=== PATIENT | male | born 1950 | race Caucasian/White ===

== ENCOUNTER 2019-08-11 11:14 | Observation (INO) | payer MEDICARE, SELFPAY ==
[2019-08-11 11:15] VITALS: BP 135/65; PULSE 97; RESP 20; TEMP 36.6; O2SAT 99; BMI 19.5
[2019-08-11 11:28] VITALS: BMI 15.3
--- NOTE | 2019-08-11 11:31 | RAD_ITS ---
STUDY: X-RAY CHEST REASON FOR EXAM: Male, 69 years old. Increasing SOB -- emphysema, h/o asbestos TECHNIQUE: AP and lateral views of the chest. COMPARISON: Comparison is made with prior examination dated September 12, 2013. FINDINGS: EKG electrodes are seen. Since prior study, there has been moderate degree of progression of diffuse interstitial changes in both lungs worse in the lower lobes. This is suggestive of progressive interstitial fibrosis. I suspect a 1.2 cm nodule in the lateral aspect of the right middle lobe. There is blunting of both costophrenic angles. Right pleural plaque calcification. Sternal cerclage wires are present from a prior sternotomy. The patient is status post mitral valve replacement. Normal mediastinum and ward. Normal visualized pulmonary arteries. There is atherosclerotic calcification of the aortic arch with tortuosity. There are diffuse degenerative changes of the visualized thoracic spine. Normal visualized ribs, clavicles, and shoulders. There is no demonstrated abnormality of the visualized soft tissue structures of the upper abdomen. RAD/Chest PA and Lateral IMPRESSION: Progressive increased interstitial markings in both lungs with blunting of both gastric angles as well as calcified right pleural plaques. I suspect a 1.2 cm nodule in the lateral aspect of the right middle lobe. Electronically Signed: Torsten Chacko, at 12:57 EST , Service support ,
--- NOTE | 2019-08-11 11:31 | EKG12_ITS ---
Test Reason : SOB Blood Pressure : / mmHG Vent. Rate : 089 BPM Atrial Rate : 089 BPM P-R Int : 172 ms QRS Dur : 080 ms QT Int : 354 ms P-R-T Axes : 016 043 067 degrees QTc Int : 430 ms Normal sinus rhythm with sinus arrhythmia Moderate voltage criteria for LVH, may be normal variant Borderline ECG Confirmed by MARÍA KERR, JESUS ([id number]), book editor RYAN SHANE ([id number]) on 08/14/2019 3:36:10 PM Referred By: RICCARDO Confirmed By:JESUS DANIEL MD
--- NOTE | 2019-08-11 11:33 | ED.VIS.GEN ---
History of Present Illness Chief Complaint: Shortness of Breath Informant: Patient, Family Narrative: She is here with chronic worsening of shortness of breath, weight loss and increasing weakness. This is been ongoing for a few months but got much worse in the past few weeks his daughter had try to get him to the hospital but he refused to go. Patient excepted today. He has no fever or chills he has a chronic cough, he denies any abdominal pain or back pain. Denies alcohol, he does smoke quite a bit, he denies any chest pain he tells me his shortness of breath is mostly exertional. He had lost 40 to 50 pounds recently. Past Medical History - Allergies and Home Meds Allergies/Adverse Reactions: Allergies No Known Allergies Allergy (Verified 08/11/19 11:17) Primary Care Physician: David Freedman Chi, MD [COURTESY STAFF PHYSICIAN] - Past Medical History: - - Hypertension hypercholesterolemia history of cardiac disease Smoking Status: Current every day smoker Review of Systems General: Reports: Malaise. Denies: Fever Eyes: Denies: Visual changes - bilaterally Cardiovascular: Denies: Chest pain, Palpitations Respiratory: Reports: Cough, Dyspnea on exertion. Denies: Sputum Gastrointestinal: Denies: Abdominal pain, Nausea Genitourinary: Denies: Dysuria Musculoskeletal: Denies: Myalgias Skin: Denies: Rash Neurological: Reports: Headache, - - No focal weakness, he does have generalized weakness Endocrine: Denies: Polyuria Hematologic: Denies: Easy bruising Physical Exam Vital Signs/Narrative: Vital Signs Temp Pulse Resp BP Pulse Ox 08/11/19 11:15 98 F 97 20 H 135/65 H 99 General: - - Patient appears cachectic, he has quite a bit of muscle wasting Head: Normocephalic Eyes: Perrl. Negative for: Pale conjunctiva ENT: Dry mucous membranes Neck: Supple Cardiovascular: Regular rate, Regular rhythm, No murmurs, - - Midline scar, nontender Respiratory: - - Coarse bilateral breath sounds, diminished breath sounds but no wheezing slightly prolonged expirations. Abdomen: Soft, Nontender, Nondistended Back: Nontender, Normal Inspection. Negative for: CVA tenderness Extremities: Nontender, No edema Skin: Negative for: Cyanosis, Jaundice, Pallor, Rash Neurological: Alert, Oriented x3, Cranial nerves II-XII grossly intact Psychological: Depressed Diagnostic/Tx/Re-eval - Medical Decision Making He has a pulmonary nodule, he is quite cachectic, it is clear after discussing with the patient as well as the daughter that he cannot function outpatient I will admit him. He will need placement he will need further monitoring. Will need nutrition. ED Disposition - Plan for ED Patient: Disposition: Home or Assisted Living Diagnosis: Weakness, Malnutrition
[2019-08-11 12:08] LABS: Absolute Lymphocyte Count 0.87 X10^3/uL (0.83-4.51); Absolute Neutrophil Count 3.8 X10^3/uL (2.0-7.7); Basophil# 0.05 X10^3/uL; Eosinophil# 0.03 X10^3/uL; Eosinophils% 0.6 % (0-5); Hematocrit 41.8 % (40-54); Lymphocyte # 0.87 X10^3/ul (4.0); Mean Corp Hgb Conc 31.1 g/dL (32-36); Mean Corpuscular Hgb 28.1 pg (27.0-32.0); Mean Corpuscular Volume 90.3 fL (80-94); Mean Platelet Vol. 10.4 fl (6.2-12.0); Monocyte% 5.9 % (0-10); NRBC Flagged by Analyzer 0 % (0-5); Neutrophil # 3.84 X10^3/uL (2.7-7.7); Neutrophil % 75.1 % (47-70); Platelet Count 119 K/mm3 (150-450); RBC Distribution Width CV 14.5 % (11.6-14.6); RBC Distribution Width SD 47.1 fl (35.1-43.9); Red Blood Count 4.63 M/mm3 (4.6-6.2); White Blood Count 5.1 K/mm3 (4.4-11.0)
--- NOTE | 2019-08-11 12:26 | NURSING ---
CHEMISTRIES HEMOLIZED
[2019-08-11 12:41] LABS: International Normalized Ratio 1.1; Prothrombin Time (Protime)PT. 14.1 SECONDS (11.7-14.9)
[2019-08-11 12:51] LABS: ALB/GLOB Ratio 0.6 RATIO (0.9-2.4); AST(SGOT) 12 U/L (15-37); Alanine Aminotransfer ALT/SGPT 7 U/L (16-61); Albumin, Serum 2.8 g/dL (3.2-5.0); Alkaline Phosphatase 75 U/L (45-117); Anion Gap 4 (5-15); BUN 17 mg/dL (7-18); BUN/Creat Ratio 23.6 RATIO (10-20); Calcium,Total 8.7 mg/dL (8.5-10.1); Chloride 102 mmol/L (98-107); Creatinine, Serum 0.72 mg/dL (0.70-1.30); EST Glomerular Filtration Rate 115 mL/min (>60); Est Glom Filt Rate - Afr Amer 139 mL/min (>60); Estimated Creatinine Clearance 38.66 ml/min; Glucose 87 mg/dL (74-106); Potassium 3.4 mmol/L (3.5-5.1); Protein, Total 7.8 g/dL (6.4-8.2); Sodium Level 139 mmol/L (136-145)
[2019-08-11 13:33] LABS: Mucous, Urine 0 SEEN /hpf (<or=2+); Red Blood Cells-Urine 0 SEEN /hpf (0-5)
[2019-08-11 13:42] LABS: Color, Urine Yellow (Yellow); Glucose, Dipstick Normal (Normal); Ketone-Dipstick Negative (Negative); Leukocyte Esterase-Dipstick 25 /ul (Negative); Nitrite-Dipstick Negative (Negative); Occult Blood-Urine 10 /ul (Negative); Protein-Dipstick 30 mg/dl (Negative); Specific Gravity, Urine 1.015 (1.002-1.030); Urine Bilirubin Dipstick Negative (Negative); Urine Clarity Sl. Cloudy (Clear); Urine Urobilinogen Normal (Normal); Urine pH 6.5 (5.0 - 8.0)
[2019-08-11 13:46] VITALS: BP 167/82; PULSE 100; RESP 18; O2SAT 96
--- NOTE | 2019-08-11 13:46 | ED.RN ---
pt admits has not been taking any medications for many months
[2019-08-11 13:50] LABS: Bacteria RARE /hpf (None Seen); Squamous Epithelial Cells - UA 0-5 SEEN /hpf (0-5); White Blood Cells 5-10 SEEN /hpf (0-5)
--- NOTE | 2019-08-11 14:14 | NURSING ---
MED SURG [facility] WEAKNESS, SOB, CACHECTIC
[2019-08-11 14:30] VITALS: BP 167/82; PULSE 100; RESP 18; TEMP 36.6; O2SAT 96
[2019-08-11 15:15] VITALS: BMI 14.7
[2019-08-11 15:26] VITALS: BMI 14.8
[2019-08-11 15:44] VITALS: BP 149/70; PULSE 92; RESP 18; TEMP 36.4; O2SAT 93
--- NOTE | 2019-08-11 15:50 | CT_ITS ---
STUDY: CT CHEST WITH CONTRAST REASON FOR EXAM: Male, 69 years old. LUNG NODULE, ASBETOSIS, WT LOSS of 40-50lb recently, WORSENING SOB,INCREASED WEAKNESS. Prior CABG for mitral valve replacement RADIATION DOSAGE (If Supplied By Facility): CTDIvol = ( 10.48 ) mGy, DLP = ( 165.56 ) mGycm TECHNIQUE: Transaxial imaging was performed following intravenous administration of IV 60mL [id number]-300. Multiplanar coronal and sagittal images were reformatted. Individualized dose optimization techniques were used for this CT. COMPARISON: Prior chest radiographs of August 11, 2019 and September 12, 2013 FINDINGS: Extensive primarily subpleural bullous and cystic changes throughout. Marked diffuse interstitial opacities. On the left, there is generalized pleural thickening with scattered relatively small calcified pleural plaque negative for major consolidation or a left pleural effusion. On the right there is a generalized pleural thickening greater than the left including the fissures, a large calcified pleural plaque on the surface of the diaphragm, posterior inferior pleural surface and anterior pleural surface. In the axillary portion of the right upper lobe there is a pleural-based, thick walled irregular cavity measuring 4.3 x by 3.5 x 2.5 cm with surrounding spiculation and confluent with a dense band of tissue extending to include the right upper lobe bronchus and segmental bronchi. Normal heart and pericardium. Status post mitral valve replacement. Stent artifact and coronary calcifications. Status post prior midline sternotomy. Diffusely dense mediastinum. Enlarged lymph node of the anterior mediastinum, long axis I.8 cm. Enlarged anterior carinal lymph nodes, largest 1.7 x 1.9 cm. Probable ill-defined subcarinal adenopathy. Shotty bilateral hilar lymph nodes, right greater than left. Normal enhanced pulmonary arteries. There is atherosclerotic calcification of the aortic arch with tortuosity and elongation of the aortic arch and descending thoracic aorta. There are multi-level degenerative changes of the thoracic spine. There is no demonstrated abnormality of the visualized upper abdomen. CT/Chest WITH Contrast IMPRESSION: Extensive primarily subpleural bullous and chronic cystic changes throughout and marked diffuse interstitial opacities of a chronic nature with generalized pleural thickening and calcified pleural plaque. Calcified pleural plaque are more extensive on the right side. The general appearance and pattern appears similar in extent and degree to a prior chest radiograph of September 12, 2013. However, there is a irregular thick walled pleural based cavity in the axillary portion of the right upper lobe measuring 4.3 x 3.5 x 2.5 cm associated with adjacent marked bronchial thickening which now appears to be a new finding from the exam of 2013. Inflammatory versus neoplastic process. Mediastinal and subcarinal adenopathy. Shotty hilar lymph nodes. Negative for pleural effusion. Normal cardiac size. Status post prior midline sternotomy. Status post mitral valve replacement. Cardiac calcifications and stents. Atherosclerotic changes of the aorta without aneurysm or dissection. Negative for pulmonary embolus. Electronically Signed: Suzie Melgar MD at 17:00 EST , Service support ,
--- NOTE | 2019-08-11 16:30 | HP.PCM_ITS ---
Problem List (1) Debility Status: Acute (2) Lung nodule Status: Chronic (3) HTN (hypertension) Status: Chronic (4) Dementia Status: Chronic (5) CAD (coronary artery disease) Status: Chronic (6) HLD (hyperlipidemia) Status: Chronic (7) Asbestosis Status: Chronic (8) Malnutrition Status: Chronic History of Present Illness Date of Admission: 08/11/19 Chief Complaint: inability to take care of himself The patient is a 69 year old M with past medical history of CAD with prior CABG, nicotine abuse, asbestosis, hypertension, hyperlipidemia, former alcoholic, dem entia, who presented to the emergency room after being sent by his daughter. She found him in his house not taking care of himself, house was in a state of disarray, and he was very weak. He had lost at least 40 pounds over the past 6 months, likely more. He has not been taking his medications, the nurses checked with his pharmacy and it appears that he has likely been off his medications for about 5 months. He currently is resting comfortably in bed no acute distress. He has no chest pain, lightheadedness, dizziness, shortness of breath, fevers or chills. He lives alone. He is no longer able to take care of himself. Patient's daughter is present and states that his memory has been worsening lately and she is fairly confident that he has dementia. [] Past Medical History Past Medical History (Chronic Problems): Chronic Problems Malnutrition (Chronic) Lung nodule (Chronic) HTN (hypertension) (Chronic) Dementia (Chronic) CAD (coronary artery disease) (Chronic) HLD (hyperlipidemia) (Chronic) Asbestosis (Chronic) Allergies No Known Allergies Allergy (Verified 08/11/19 11:17) Home Medications: Ambulatory Orders Medication Instructions Recorded Amlodipine [Norvasc] 2.5 mg PO DAILY 08/11/19 Aspirin E.C. [Ecotrin] 81 mg PO DAILY@0800 08/11/19 Atorvastatin Calcium [Lipitor] 20 mg PO DAILY 08/11/19 Clopidogrel Bisulfate [Clopidogrel] 75 mg PO DAILY 08/11/19 Cyanocobalamin (Vitamin B-12) 1,000 mcg PO DAILY 08/11/19 [B-12] Fenofibrate Nanocrystallized 160 mg PO DAILY 08/11/19 [Fenofibrate] Losartan Potassium 100 mg PO DAILY 08/11/19 Metoprolol(XL)Succ [Toprol Xl 150 mg PO DAILY 08/11/19 (Beta Shayla)] traZODone [Desyrel] 200 mg PO QHS 08/11/19 Surgical History: cataract, coronary bypass surgery Psychiatric History: No pertinent psych hx Lives: Alone Smoking Status: Current every day smoker Tobacco Use: Cigarettes Alcohol: Sober Drugs: None Review of Systems Constitutional: Denies: Chills, Fever, Weight Change HEENT: Denies: Head Aches, Sinus Congestion, Sinus Drainage Cardiovascular: Denies: Chest Pain, Palpitations Respiratory: Denies: Cough, Shortness of breath at rest, Sputum production Gastrointestinal: Denies: Abdominal Pain, Nausea, Vomiting Genitourinary: Denies: Dysuria Musculoskeletal: Denies: Joint Pain, Joint Tenderness Skin: Denies: Rash, Wounds Neurological: Denies: Numbness, Tingling, Focal weakness Psychiatric: Denies: Anxiety, Depression, Homicidal Ideations, Suicidal Ideations Hematologic/ Lymphatic: Denies: Easy Bruising, Easy Bleeding VTE Information - Inpt Only VTE Present on Admission: No VTE Mechan Device Prophylaxis: None VTE Pharm Prophylaxis ordered?: Yes Patient Problems: Active and Suspected Problems Weakness (Acute) Debility (Acute) - Physical Exam Vitals/I&O's: Vital Signs Temp Pulse Resp BP Pulse Ox 97.5 F L 92 18 149/70 H 93 08/11/19 15:44 08/11/19 15:44 08/11/19 15:44 08/11/19 15:44 08/11/19 15:44 Oxygen Delivery Method Room Air Weight: 83 lb 5.356 oz Body Mass Index (BMI) 14.7 Intake and Output for Last 24 Hours 08/09/19 08/10/19 08/11/19 23:59 23:59 23:59 Intake Total 500 / 500 Balance 500 / 500 General: Alert, Oriented x3, Cooperative, - - cachectic HEENT: Atraumatic, PERRLA, EOMI, Normocephalic Neck: Supple, No JVD, Negative Carotid Bruits Lungs: Normal air movement, Rales - fine crackles BL [place]. Cardiovascular: Regular rate, No murmurs Abdomen: Bowel Sounds Present, Soft, Non Tender Extremities: No edema, Capillary Refill Less than 3 Seconds Skin: No rashes, No breakdown Musculoskeletal: No Tenderness to Palpation of Joints or Extremities Neurological: Cranial nerves II-XII grossly intact Psych/Mental Status: Normal Affect, Appropriate, Alert and oriented to time, place, person, mood and affect Laboratory Results 08/11/19 12:00: WBC 5.1, RBC 4.63, Hgb 13.0, Hct 41.8, MCV 90.3, MCH 28.1, MCHC 31.1 L, RDW Std Deviation 47.1 H, RDW Coeff of Nima 14.5, Plt Count 119 L, MPV 10.4, Immature Gran % (Auto) 0.400, Neut % (Auto) 75.1 H, Lymph % (Auto) 17.0 L, [place] % (Auto) 5.9, Eos % (Auto) 0.6, Baso % (Auto) 1.0, Absolute Neuts (auto) 3.8, Absolute Lymphs (auto) 0.87, Nucleated RBC % 0 08/11/19 12:00: Sodium Cancelled, Potassium Cancelled, Chloride Cancelled, Carbon Dioxide Cancelled, Anion Gap Cancelled, BUN Cancelled, Creatinine Cancelled, Estim Creat Clear Calc Cancelled, Est GFR (MDRD) Af Amer Cancelled, Est GFR (MDRD) Non-Af Cancelled, BUN/Creatinine Ratio Cancelled, Glucose Cancelled, Calcium Cancelled, Total Bilirubin Cancelled, AST Cancelled, ALT Cancelled, Alkaline Phosphatase Cancelled, Troponin I Cancelled, Total Protein Cancelled, Albumin Cancelled, Globulin Cancelled, Albumin/Globulin Ratio Cancelled 08/11/19 12:20: PT 14.1, INR 1.1 08/11/19 12:20: Sodium 139, Potassium 3.4 L, Chloride 102, Carbon Dioxide 33.0 H , Anion Gap 4 L, BUN 17, Creatinine 0.72, Estim Creat Clear Calc 38.66, Est GFR (MDRD) Af Amer 139, Est GFR (MDRD) Non-Af 115, BUN/Creatinine Ratio 23.6 H, Glucose 87, Calcium 8.7, Total Bilirubin 0.40, AST 12 L, ALT 7 L, Alkaline Phosphatase 75, Troponin I < 0.015, Total Protein 7.8, Albumin 2.8 L, Globulin 5.0 H, Albumin/Globulin Ratio 0.6 L 08/11/19 13:25: Urine Color Yellow, Urine Clarity Sl. Cloudy, Urine pH 6.5, Ur Specific [place] 1.015, Urine Protein 30 H, Urine Glucose (UA) Normal, Urine Ketones Negative, Urine Occult Blood 10 H, Urine Nitrite Negative, Urine Bilirubin Negative, Urine Urobilinogen Normal, Ur Leukocyte Esterase 25 H, Urine RBC 0 SEEN, Urine WBC 5-10 SEEN, Ur Squamous Epith Cells 0-5 SEEN, Urine Bacteria RARE, Urine Mucus 0 SEEN Current Medications Amlodipine Besylate (Norvasc) 2.5 mg PO DAILY [facility] Aspirin (Ecotrin) 81 mg PO DAILY@0800 [facility] Atorvastatin Calcium (Lipitor) 20 mg PO DAILY [facility] Clopidogrel Bisulfate (Plavix) 75 mg PO DAILY [facility] Heparin Sodium (Porcine) (Heparin Na) 5,000 unit SC Q12 [facility] Sodium Chloride () 250 mls @ 15 mls/hr IV .[id number] PRN PRN Reason: Saline Flush Sodium Chloride () 1,000 mls @ 100 mls/hr IV .Q10H [facility] Losartan Potassium (Cozaar) 100 mg PO DAILY [facility] Metoprolol Tartrate (Lopressor (Beta Shayla)) 50 mg PO BID [facility] Mirtazapine (Remeron) 30 mg PO QHS [facility] Sodium Chloride () 10 - 40 ml IV UD PRN PRN Reason: SALINE FLUSH Assessment/Plan All Active Problems Weakness (Acute) Debility (Acute) 1. Generalized debility - severely malnourished, bmi 14, dementia complicating his ability to take care of himself at home. he is no longer appropriate to be at home. PTOT. Dietary eval. SNF placement. Reintroduce home meds. remeron trial for appetite stimulation. Trop neg. 2. Lung nodule - 1.[address] hx asbestosis 3. CAD hx CABG - aspirin, plavix, losartan, metoprolol. 4. HTN - resume home meds with caution. 5. HLD - statin 6. Dementia - not on medications for this. 7. Nicotine abuse - patch if desired. 8. Former alcoholic - sober about 1 year. DVT ppx: lovenox DC planning: SNF This patient was seen by Rafal Machado PA-C under the supervision of Dr. Edmonds
[2019-08-11] MEDS: 0.9% Normal Saline 1,000 ML 100 ML IV (16:57)
[2019-08-11 21:00] VITALS: BP 148/77; PULSE 100; RESP 18; TEMP 36.8; O2SAT 97
[2019-08-11 21:01] VITALS: BP 148/77; PULSE 102
[2019-08-11] MEDS: Metoprolol Tartrate 50 MG Tablet PO (21:01)
[2019-08-11] MEDS: Mirtazapine 30 MG Tablet PO (21:01)
[2019-08-11] MEDS: Heparin Injection (Vial) 5,000 UNIT/ML VIAL 5000 UNIT SC (21:01)
[2019-08-12] VITALS (8 sets, daily range): BP systolic 141–155; BP diastolic 70–83; PULSE 71–103; RESP 18; TEMP 36.4–36.7; O2SAT 89–99
[2019-08-12] MEDS: 0.9% Normal Saline 1,000 ML 100 ML IV ×3 (02:14→23:32)
[2019-08-12 07:00] LABS: ALB/GLOB Ratio 0.6 RATIO (0.9-2.4); AST(SGOT) 18 U/L (15-37); Alanine Aminotransfer ALT/SGPT 9 U/L (16-61); Albumin, Serum 2.5 g/dL (3.2-5.0); Alkaline Phosphatase 65 U/L (45-117); Anion Gap 3 (5-15); BUN 17 mg/dL (7-18); BUN/Creat Ratio 28.7 RATIO (10-20); Calcium,Total 8.1 mg/dL (8.5-10.1); Chloride 109 mmol/L (98-107); Creatinine, Serum 0.59 mg/dL (0.70-1.30); EST Glomerular Filtration Rate 144 mL/min (>60); Est Glom Filt Rate - Afr Amer 174 mL/min (>60); Estimated Creatinine Clearance 37.28 ml/min; Globulin 4.2 g/dL (2.2-4.2); Glucose 115 mg/dL (74-106); Potassium 3.4 mmol/L (3.5-5.1); Protein, Total 6.7 g/dL (6.4-8.2); Sodium Level 143 mmol/L (136-145)
[2019-08-12] MEDS: Heparin Injection (Vial) 5,000 UNIT/ML VIAL 5000 UNIT SC ×2 (09:20→22:38)
[2019-08-12] MEDS: Clopidogrel Bisulfate 75 MG Tablet PO (09:21)
[2019-08-12] MEDS: Losartan Potassium 100 MG Tablet PO (09:21)
[2019-08-12] MEDS: Atorvastatin Calcium 20 MG Tablet PO (09:21)
[2019-08-12] MEDS: Metoprolol Tartrate 50 MG Tablet PO ×2 (09:21→22:38)
[2019-08-12] MEDS: amLODIPine 2.5 MG Tablet PO (09:21)
[2019-08-12] MEDS: Aspirin E.C. 81 MG Tablet PO (09:21)
--- NOTE | 2019-08-12 09:48 | PCM.PN.HOSP ---
Patient Problems: Active and Suspected Problems Weakness (Acute) Debility (Acute) Subjective: States that he still short of breath but he feels about the same as he did when he came in Vitals/I&O's: Vital Signs Temp Pulse Resp BP Pulse Ox 97.8 F 76 18 148/78 H 99 08/12/19 08:25 08/12/19 09:21 08/12/19 08:25 08/12/19 08:25 08/12/19 08:25 Oxygen Flow Rate (L/min) 2 Oxygen Delivery Method Nasal Cannula Weight: 83 lb 5.356 oz Body Mass Index (BMI) 14.7 Intake and Output for Last 24 Hours 08/10/19 08/11/19 08/12/19 23:59 23:59 23:59 Intake Total 740 / 740 1168.33 / 1168.33 Balance 740 / 740 1168.33 / 1168.33 General: Alert, Oriented x3, Cooperative, No apparent distress, - - Very malnourished HEENT: Atraumatic, PERRLA, EOMI, Normocephalic Oral: Dry Mucosa Neck: Supple, No JVD Lungs: Clear to auscultation, Normal air movement, No rhonchi, No wheeze, No rales Cardiovascular: Regular rate, Regular Rhythm, Normal S1, Normal S2, No murmurs Abdomen: Soft, Non Tender, Non-Distended, No Hepato-splenomegaly Extremities: No edema, Capillary Refill Less than 3 Seconds Skin: No rashes, No breakdown Musculoskeletal: Cachexia, Muscle Wasting Neurological: Neuro grossly intact, Sensory exam intact to light touch and pain Psych/Mental Status: Normal Affect, Appropriate Laboratory Results 08/11/19 12:00: WBC 5.1, RBC 4.63, Hgb 13.0, Hct 41.8, MCV 90.3, MCH 28.1, MCHC 31.1 L, RDW Std Deviation 47.1 H, RDW Coeff of Nima 14.5, Plt Count 119 L, MPV 10.4, Immature Gran % (Auto) 0.400, Neut % (Auto) 75.1 H, Lymph % (Auto) 17.0 L, [place] % (Auto) 5.9, Eos % (Auto) 0.6, Baso % (Auto) 1.0, Absolute Neuts (auto) 3.8, Absolute Lymphs (auto) 0.87, Nucleated RBC % 0 08/11/19 12:00: Sodium Cancelled, Potassium Cancelled, Chloride Cancelled, Carbon Dioxide Cancelled, Anion Gap Cancelled, BUN Cancelled, Creatinine Cancelled, Estim Creat Clear Calc Cancelled, Est GFR (MDRD) Af Amer Cancelled, Est GFR (MDRD) Non-Af Cancelled, BUN/Creatinine Ratio Cancelled, Glucose Cancelled, Calcium Cancelled, Total Bilirubin Cancelled, AST Cancelled, ALT Cancelled, Alkaline Phosphatase Cancelled, Troponin I Cancelled, Total Protein Cancelled, Albumin Cancelled, Globulin Cancelled, Albumin/Globulin Ratio Cancelled 08/11/19 12:20: PT 14.1, INR 1.1 08/11/19 12:20: Sodium 139, Potassium 3.4 L, Chloride 102, Carbon Dioxide 33.0 H, Anion Gap 4 L, BUN 17, Creatinine 0.72, Estim Creat Clear Calc 38.66, Est GFR (MDRD) Af Amer 139, Est GFR (MDRD) Non-Af 115, BUN/Creatinine Ratio 23.6 H, Glucose 87, Calcium 8.7, Total Bilirubin 0.40, AST 12 L, ALT 7 L, Alkaline Phosphatase 75, Troponin I < 0.015, Total Protein 7.8, Albumin 2.8 L, Globulin 5.0 H, Albumin/Globulin Ratio 0.6 L 08/11/19 13:25: Urine Color Yellow, Urine Clarity Sl. Cloudy, Urine pH 6.5, Ur Specific [place] 1.015, Urine Protein 30 H, Urine Glucose (UA) Normal, Urine Ketones Negative, Urine Occult Blood 10 H, Urine Nitrite Negative, Urine Bilirubin Negative, Urine Urobilinogen Normal, Ur Leukocyte Esterase 25 H, Urine RBC 0 SEEN, Urine WBC 5-10 SEEN, Ur Squamous Epith Cells 0-5 SEEN, Urine Bacteria RARE, Urine Mucus 0 SEEN 08/12/19 05:54: Sodium 143, Potassium 3.4 L, Chloride 109 H, Carbon Dioxide 31.0, Anion Gap 3 L, BUN 17, Creatinine 0.59 L, Estim Creat Clear Calc 37.28, Est GFR (MDRD) Af Amer 174, Est GFR (MDRD) Non-Af 144, BUN/Creatinine Ratio 28.7 H, Glucose 115 H, Calcium 8.1 L, Total Bilirubin 0.20, AST 18, ALT 9 L, Alkaline Phosphatase 65, Total Protein 6.7, Albumin 2.5 L, Globulin 4.2, Albumin/Globulin Ratio 0.6 L Current Medications Amlodipine Besylate (Norvasc) 2.5 mg PO DAILY [facility] Last Admin: 08/12/19 09:21 Dose: 2.5 mg Documented by: Aspirin (Ecotrin) 81 mg PO DAILY@0800 [facility] Last Admin: 08/12/19 09:21 Dose: 81 mg Documented by: Atorvastatin Calcium (Lipitor) 20 mg PO DAILY [facility] Last Admin: 08/12/19 09:21 Dose: 20 mg Documented by: Clopidogrel Bisulfate (Plavix) 75 mg PO DAILY [facility] Last Admin: 08/12/19 09:21 Dose: 75 mg Documented by: Heparin Sodium (Porcine) (Heparin Na) 5,000 unit SC Q12 [facility] Last Admin: 08/12/19 09:20 Dose: 5,000 unit Documented by: Sodium Chloride () 250 mls @ 15 mls/hr IV .[id number] PRN PRN Reason: Saline Flush Sodium Chloride () 1,000 mls @ 100 mls/hr IV .Q10H [facility] Last Admin: 08/12/19 02:14 Dose: 100 mls/hr Documented by: Losartan Potassium (Cozaar) 100 mg PO DAILY [facility] Last Admin: 08/12/19 09:21 Dose: 100 mg Documented by: Metoprolol Tartrate (Lopressor (Beta Shayla)) 50 mg PO BID [facility] Last Admin: 08/12/19 09:21 Dose: 50 mg Documented by: Mirtazapine (Remeron) 30 mg PO QHS [facility] Last Admin: 08/11/19 21:01 Dose: 30 mg Documented by: Sodium Chloride () 10 - 40 ml IV UD PRN PRN Reason: SALINE FLUSH STROKE Vital Signs/Narrative: Vital Signs Temp Pulse Resp BP Pulse Ox 08/12/19 09:21 76 08/12/19 08:25 97.8 F 76 18 148/78 H 99 Medical Necessity - Tobacco Use Smoking Status: Current every day smoker Tobacco Use: Cigarettes Assessment/Plan All Active Problems Weakness (Acute) Debility (Acute) 1. Severe protein malnutrition/generalized debility -Will encourage significant p.o. intake -Consult to dietary for evaluation -PT/OT -Plan to DC to a correction facility as he can no longer stay home alone -Remeron to try to stimulate appetite 2. CAD status post CABG/HTN/HLD -Blood pressure stable -He is on his home aspirin, Plavix, losartan, metoprolol -Since we are restarting his home meds will monitor very closely and make adjustments as necessary -Continue with statin 3. Lung nodule/tobacco abuse -Has a history of asbestosis and is a 1.2 cm nodule in his lung on the right -Repeat chest CT in a few months -Can provide a patch if necessary, advised cessation of his smoking 4. Dementia/former alcoholic -Currently on any medications -Quit drinking about a year ago DVT: Lovenox Inpatient E&M: 90001 Subs Hosp L2
[2019-08-12 11:52] LABS: Magnesium 1.9 mg/dL (1.6-2.6)
--- NOTE | 2019-08-12 13:57 | CASEMGMT ---
SOCIAL WORK REFERRED BY CASE MANAGEMENT FOR DISCHARGE PLANNING. PATIENT WANTING SNF. MET WITH PATIENT AND DAUGHTER, ANTONIO IN ROOM. INTRODUCED ROLE AND REASON FOR REFERRAL. PATIENT ADMITTED FOR WEAKNESS AND SOB. PATIENT WITH HISTORY OF FALLS. PRIOR TO ADMISSION PATIENT WAS LIVING HOME ALONE AND HAS BEEN DECLINING PHYSICALLY. DISCUSSED DISCHARGE PLANNING. PATIENT AND DAUGHTER FEEL PATIENT WOULD BENEFIT FROM SNF. DAUGHTER REQUESTING PATIENT BE PLACED IN FACILITY IN [facility] DAUGHTER LIVES IN [facility]. INFORMED A AIRSET CASTER WILL BE FOLLOWING UP ON WEDNESDAY AT PATIENT WILL REQUIRE PRECERT. PATIENT AND DAUGHTER VERBALIZED UNDERSTANDING. PATIENT AND DAUGHTER REQUESTED TO COMPLETE HPOA PAPERWORK. HPOA FORMS COMPLETED AND COPY ADDED TO CHART. ORIGINAL AND COPY GIVEN TO PATIENT. PLAN: SNF-REQUESTING FACILITY IN [facility] WILL NEED PRECERT. SW TO FOLLOW UP WEDNESDAY. TERRY ESPINOSA, HOTEL ENGINEER.
[2019-08-12] MEDS: Mirtazapine 30 MG Tablet PO (22:38)
[2019-08-12] MEDS: traZODone 100 MG Tablet 200 MG PO (23:33)
[2019-08-13] VITALS (11 sets, daily range): BP systolic 112–135; BP diastolic 52–83; PULSE 58–98; RESP 18–24; TEMP 36.4–37.2; O2SAT 92–100
[2019-08-13 06:52] LABS: Anion Gap 2 (5-15); BUN 16 mg/dL (7-18); BUN/Creat Ratio 24.3 RATIO (10-20); Calcium,Total 7.7 mg/dL (8.5-10.1); Chloride 110 mmol/L (98-107); Creatinine, Serum 0.66 mg/dL (0.70-1.30); EST Glomerular Filtration Rate 127 mL/min (>60); Est Glom Filt Rate - Afr Amer 154 mL/min (>60); Estimated Creatinine Clearance 37.28 ml/min; Glucose 117 mg/dL (74-106); Potassium 4.6 mmol/L (3.5-5.1); Sodium Level 143 mmol/L (136-145)
[2019-08-13] MEDS: Aspirin E.C. 81 MG Tablet PO (08:33)
[2019-08-13] MEDS: Losartan Potassium 100 MG Tablet PO (10:30)
[2019-08-13] MEDS: Metoprolol Tartrate 50 MG Tablet PO ×2 (10:30→20:47)
[2019-08-13] MEDS: Heparin Injection (Vial) 5,000 UNIT/ML VIAL 5000 UNIT SC ×2 (10:30→20:46)
[2019-08-13] MEDS: Atorvastatin Calcium 20 MG Tablet PO (10:30)
[2019-08-13] MEDS: Clopidogrel Bisulfate 75 MG Tablet PO (10:31)
[2019-08-13] MEDS: amLODIPine 2.5 MG Tablet PO (10:31)
--- NOTE | 2019-08-13 12:53 | PN_ITS ---
<Rafal Machado - Last Filed: 08/13/19 12:53> Patient Problems: Active and Suspected Problems Weakness (Acute) Debility (Acute) Reason for Visit: failure to thrive Subjective: Some wheezing today. pt states he is SOB but always is. No fever/chills/cough. Pt is eating without issue. no nausea/vomiting/diarrhea. pt agreeable to SNF placement. Vitals/I&O's: Vital Signs Temp Pulse Resp BP Pulse Ox 99 F 65 20 H 116/59 L 92 08/13/19 09:36 08/13/19 10:30 08/13/19 09:36 08/13/19 10:30 08/13/19 09:36 Oxygen Flow Rate (L/min) 2 Oxygen Delivery Method Nasal Cannula Weight: 83 lb 5.356 oz Body Mass Index (BMI) 14.7 Intake and Output for Last 24 Hours 08/11/19 08/12/19 08/14/19 23:59 23:59 00:59 Intake Total 740 / 740 3648.33 / 3848.33 1308.33 / 1308.33 Output Total 50 / 50 Balance 740 / 740 3648.33 / 3848.33 1258.33 / 1258.33 General: Alert, Cooperative, Confused, - - cachectic HEENT: Atraumatic, PERRLA, EOMI, Normocephalic Neck: Supple, No JVD, Negative Carotid Bruits Lungs: Diminished, Wheezes Cardiovascular: Regular rate, No murmurs Abdomen: Bowel Sounds Present, Soft, Non Tender Extremities: No edema, Capillary Refill Less than 3 Seconds Skin: No rashes, No breakdown Musculoskeletal: No Tenderness to Palpation of Joints or Extremities Neurological: Cranial nerves II-XII grossly intact Psych/Mental Status: Normal Affect, Appropriate Laboratory Results 08/13/19 05:34: Sodium 143, Potassium 4.6, Chloride 110 H, Carbon Dioxide 31.0, Anion Gap 2 L, BUN 16, Creatinine 0.66 L, Estim Creat Clear Calc 37.28, Est GFR (MDRD) Af Amer 154, Est GFR (MDRD) Non-Af 127, BUN/Creatinine Ratio 24.3 H, Glucose 117 H, Calcium 7.7 L Current Medications Albuterol/Ipratropium (Duoneb) 3 ml INHALATION Q4HWA.RT [facility] Amlodipine Besylate (Norvasc) 2.5 mg PO DAILY [facility] Last Admin: 08/13/19 10:31 Dose: 2.5 mg Documented by: Aspirin (Ecotrin) 81 mg PO DAILY@0800 [facility] Last Admin: 08/13/19 08:33 Dose: 81 mg Documented by: Atorvastatin Calcium (Lipitor) 20 mg PO DAILY [facility] Last Admin: 08/13/19 10:30 Dose: 20 mg Documented by: Clopidogrel Bisulfate (Plavix) 75 mg PO DAILY [facility] Last Admin: 08/13/19 10:31 Dose: 75 mg Documented by: Heparin Sodium (Porcine) (Heparin Na) 5,000 unit SC Q12 [facility] Last Admin: 08/13/19 10:30 Dose: 5,000 unit Documented by: Sodium Chloride () 250 mls @ 15 mls/hr IV .[id number] PRN PRN Reason: Saline Flush Sodium Chloride () 1,000 mls @ 100 mls/hr IV .Q10H [facility] Last Infusion: 08/13/19 08:43 Dose: Infused Documented by: Losartan Potassium (Cozaar) 100 mg PO DAILY [facility] Last Admin: 08/13/19 10:30 Dose: 100 mg Documented by: Melatonin (Melatonin) 3 mg PO QHS [facility] Metoprolol Tartrate (Lopressor (Beta Shayla)) 50 mg PO BID [facility] Last Admin: 08/13/19 10:30 Dose: 50 mg Documented by: Mirtazapine (Remeron) 30 mg PO QHS [facility] Last Admin: 08/12/19 22:38 Dose: 30 mg Documented by: Nicotine (Nicoderm Cq (Pbkc)) 7 mg TRANSDERM. DAILY [facility] Last Admin: 08/13/19 10:31 Dose: 7 mg Documented by: Nutritional Formula (Lactose Free) (Ensure Enlive) 120 ml PO 4X/DAY [facility] Last Admin: 08/13/19 10:30 Dose: 120 ml Documented by: Sodium Chloride () 10 - 40 ml IV UD PRN PRN Reason: SALINE FLUSH STROKE Vital Signs/Narrative: Vital Signs Temp Pulse Resp BP Pulse Ox 08/13/19 10:30 65 116/59 L 08/13/19 09:36 99 F 65 20 H 116/59 L 92 08/13/19 09:00 65 20 H 92 Medical Necessity - Tobacco Use Smoking Status: Current every day smoker Tobacco Use: Cigarettes Assessment/Plan All Active Problems Weakness (Acute) Debility (Acute) 1. Generalized debility - severely malnourished, bmi 14, dementia complicating his ability to take care of himself at home. he is no longer appropriate to be at home. PTOT. Dietary eval. SNF placement. Remeron for appetite. 2. Lung nodule - 1.[address] h[address] as[address] shows 4.3x3.5.2.5 cm pleural based cavity with marked bronchial thickening. 3. Suspected COPD, no formal dx - some wheezing today, no hypoxia. duonebs/IS st arted. No hypoxia. He states he is SOB all the time. 4. CAD hx CABG - aspirin, plavix, losartan, metoprolol. 5. HTN - well controlled at this time. 6. HLD - statin 7. Dementia - not on medications for this. 8. Nicotine abuse - patch if desired. 9. Former alcoholic - sober about 1 year. DVT ppx: lovenox DC planning: SNF This patient was seen by Rafal Machado PA-C under the supervision of Dr. Corbin <Alok Corbin F - Last Filed: 08/13/19 14:59> Vitals/I&O's: Vital Signs Temp Pulse Resp BP Pulse Ox 99 F 65 20 H 116/59 L 92 08/13/19 09:36 08/13/19 10:30 08/13/19 09:36 08/13/19 10:30 08/13/19 09:36 Oxygen Flow Rate (L/min) 2 Oxygen Delivery Method Nasal Cannula Weight: 83 lb 5.356 oz Body Mass Index (BMI) 14.7 Intake and Output for Last 24 Hours 08/11/19 08/12/19 08/14/19 23:59 23:59 00:59 Intake Total 740 / 740 3648.33 / 3848.33 1308.33 / 1308.33 Output Total 50 / 50 Balance 740 / 740 3648.33 / 3848.33 1258.33 / 1258.33 Laboratory Results 08/13/19 05:34: Sodium 143, Potassium 4.6, Chloride 110 H, Carbon Dioxide 31.0, Anion Gap 2 L, BUN 16, Creatinine 0.66 L, Estim Creat Clear Calc 37.28, Est GFR (MDRD) Af Amer 154, Est GFR (MDRD) Non-Af 127, BUN/Creatinine Ratio 24.3 H, Glucose 117 H, Calcium 7.7 L Current Medications Albuterol/Ipratropium (Duoneb) 3 ml INHALATION Q4HWA.RT [facility] Last Admin: 08/13/19 14:52 Dose: 3 ml Documented by: Amlodipine Besylate (Norvasc) 2.5 mg PO DAILY [facility] Last Admin: 08/13/19 10:31 Dose: 2.5 mg Documented by: Aspirin (Ecotrin) 81 mg PO DAILY@0800 [facility] Last Admin: 08/13/19 08:33 Dose: 81 mg Documented by: Atorvastatin Calcium (Lipitor) 20 mg PO DAILY [facility] Last Admin: 08/13/19 10:30 Dose: 20 mg Documented by: Clopidogrel Bisulfate (Plavix) 75 mg PO DAILY [facility] Last Admin: 08/13/19 10:31 Dose: 75 mg Documented by: Heparin Sodium (Porcine) (Heparin Na) 5,000 unit SC Q12 [facility] Last Admin: 08/13/19 10:30 Dose: 5,000 unit Documented by: Sodium Chloride () 250 mls @ 15 mls/hr IV .[id number] PRN PRN Reason: Saline Flush Sodium Chloride () 1,000 mls @ 100 mls/hr IV .Q10H [facility] Last Infusion: 08/13/19 08:43 Dose: Infused Documented by: Losartan Potassium (Cozaar) 100 mg PO DAILY [facility] Last Admin: 08/13/19 10:30 Dose: 100 mg Documented by: Melatonin (Melatonin) 3 mg PO QHS [facility] Metoprolol Tartrate (Lopressor (Beta Shayla)) 50 mg PO BID [facility] Last Admin: 08/13/19 10:30 Dose: 50 mg Documented by: Mirtazapine (Remeron) 30 mg PO QHS [facility] Last Admin: 08/12/19 22:38 Dose: 30 mg Documented by: Nicotine (Nicoderm Cq (Pbkc)) 7 mg TRANSDERM. DAILY [facility] Last Admin: 08/13/19 10:31 Dose: 7 mg Documented by: Nutritional Formula (Lactose Free) (Ensure Enlive) 120 ml PO 4X/DAY [facility] Last Admin: 08/13/19 10:30 Dose: 120 ml Documented by: Sodium Chloride () 10 - 40 ml IV UD PRN PRN Reason: SALINE FLUSH Addendum: Dr. Corbin I personally examined the patient and reviewed the chart. I agree with the above. 69-year-old male with a history of CAD status post CABG, HTN/HLD and former alcoholic with dementia presents after being found by his daughter at home. Was not taking care of himself and was very weak and contacted. Apparently has lost about 40 pounds over the last 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 He was admitted debility and a Inability to Take Care Of Himself and Severe Protein Calorie Malnutrition. He was started on Ensure to increase his caloric intake and nutrition was consulted. PT and OT are evaluating him for possible placement. OBSV E&M: 91860 Subsequent observation care L2
[2019-08-13] MEDS: Ipratropium/Albuterol Sulfate 3 ML AMPUL.NEB INHALATION ×2 (14:52→19:29)
[2019-08-13] MEDS: MELATONIN 3 MG TABLET PO (20:46)
[2019-08-13] MEDS: Mirtazapine 30 MG Tablet PO (20:46)
[2019-08-14] VITALS (9 sets, daily range): BP systolic 105–116; BP diastolic 50–69; PULSE 56–85; RESP 18–20; TEMP 36.6–36.8; O2SAT 93–99
[2019-08-14] MEDS: Ipratropium/Albuterol Sulfate 3 ML AMPUL.NEB INHALATION ×2 (07:09→18:28)
[2019-08-14] MEDS: Clopidogrel Bisulfate 75 MG Tablet PO (08:41)
[2019-08-14] MEDS: Losartan Potassium 100 MG Tablet PO (08:42)
[2019-08-14] MEDS: Atorvastatin Calcium 20 MG Tablet PO (08:42)
[2019-08-14] MEDS: Heparin Injection (Vial) 5,000 UNIT/ML VIAL 5000 UNIT SC ×2 (08:42→21:28)
[2019-08-14] MEDS: Aspirin E.C. 81 MG Tablet PO (08:42)
[2019-08-14] MEDS: amLODIPine 2.5 MG Tablet PO (08:42)
[2019-08-14] MEDS: Metoprolol Tartrate 50 MG Tablet PO ×2 (08:42→21:28)
--- NOTE | 2019-08-14 10:39 | CASEMGMT ---
Intro role of CM to patient and [facility] form explained re: Observation status for treatment of Debility. Explained hospitalization will be paid per? insurance policy for Outpatient billing?and condition will continue to be evaluated for Inpt necessity. Also let pt know that [facility] sends paper in the billing packet with their phone number if questions arise. Discussed Pharmacy section of [facility] form and self administered medication guideline.? Pt verbalizes understanding. Pt slow to respond but asked if he needed to keep the form. Form placed in folder and RN CM let pt know it was no financial, only informational.Pt did not have further questions. Form signed and placed in chart, copy to pt. FAUSTO STUDENT COUNSELLOR CM
--- NOTE | 2019-08-14 13:18 | PN_ITS ---
<Rafal Machado - Last Filed: 08/14/19 13:18> Patient Problems: Active and Suspected Problems Weakness (Acute) Debility (Acute) Reason for Visit: Debility Subjective: Patient resting comfortably in bed no acute distress. He is eating breakfast without any issues. He states his appetite is improved. He has no shortness of breath or wheezing today. No cough, fevers, chills. No nausea, vomiting, diarrhea, or abdominal pain. I talked to his daughter with regards to the findings on his CAT scan and she said that she spoke with her father and they felt that even if he were to have cancer they would not want to pursue treatment, and she does not plan for any aggressive work-up at this time. Vitals/I&O's: Vital Signs Temp Pulse Resp BP Pulse Ox 98.3 F 76 18 113/64 98 08/14/19 08:52 08/14/19 08:52 08/14/19 08:52 08/14/19 08:52 08/14/19 08:52 Oxygen Flow Rate (L/min) 2 Oxygen Delivery Method Room Air Weight: 83 lb 5.356 oz Body Mass Index (BMI) 14.7 Intake and Output for Last 24 Hours 08/12/19 08/13/19 08/14/19 22:59 23:59 23:59 Intake Total 345 / 345 Output Total Balance 345 / 345 General: Alert, Oriented x3, Cooperative, - - Cachectic HEENT: Atraumatic, PERRLA, EOMI, Normocephalic Neck: Supple, No JVD, Negative Carotid Bruits Lungs: Clear to auscultation, Diminished Cardiovascular: Regular rate, No murmurs Abdomen: Bowel Sounds Present, Soft, Non Tender Extremities: No edema, Capillary Refill Less than 3 Seconds Skin: No rashes, No breakdown Musculoskeletal: No Tenderness to Palpation of Joints or Extremities Neurological: Cranial nerves II-XII grossly intact Psych/Mental Status: Normal Affect, Appropriate Current Medications Albuterol/Ipratropium (Duoneb) 3 ml INHALATION Q4HWA.RT [facility] Last Admin: 08/14/19 11:28 Dose: Not Given Documented by: Amlodipine Besylate (Norvasc) 2.5 mg PO DAILY [facility] Last Admin: 08/14/19 08:42 Dose: 2.5 mg Documented by: Aspirin (Ecotrin) 81 mg PO DAILY@0800 [facility] Last Admin: 08/14/19 08:42 Dose: 81 mg Documented by: Atorvastatin Calcium (Lipitor) 20 mg PO DAILY [facility] Last Admin: 08/14/19 08:42 Dose: 20 mg Documented by: Clopidogrel Bisulfate (Plavix) 75 mg PO DAILY [facility] Last Admin: 08/14/19 08:41 Dose: 75 mg Documented by: Heparin Sodium (Porcine) (Heparin Na) 5,000 unit SC Q12 [facility] Last Admin: 08/14/19 08:42 Dose: 5,000 unit Documented by: Sodium Chloride () 250 mls @ 15 mls/hr IV .[id number] PRN PRN Reason: Saline Flush Losartan Potassium (Cozaar) 100 mg PO DAILY [facility] Last Admin: 08/14/19 08:42 Dose: 100 mg Documented by: Melatonin (Melatonin) 3 mg PO QHS [facility] Last Admin: 08/13/19 20:46 Dose: 3 mg Documented by: Metoprolol Tartrate (Lopressor (Beta Shayla)) 50 mg PO BID [facility] Last Admin: 08/14/19 08:42 Dose: 50 mg Documented by: Mirtazapine (Remeron) 30 mg PO QHS [facility] Last Admin: 08/13/19 20:46 Dose: 30 mg Documented by: Nicotine (Nicoderm Cq (Pbkc)) 7 mg TRANSDERM. DAILY [facility] Last Admin: 08/14/19 08:41 Dose: 7 mg Documented by: Nutritional Formula (Lactose Free) (Ensure Enlive) 120 ml PO 4X/DAY [facility] Last Admin: 08/14/19 08:42 Dose: 120 ml Documented by: Sodium Chloride () 10 - 40 ml IV UD PRN PRN Reason: SALINE FLUSH Medical Necessity - Tobacco Use Smoking Status: Current every day smoker Tobacco Use: Cigarettes Assessment/Plan All Active Problems Weakness (Acute) Debility (Acute) 1. Generalized debility - severely malnourished, bmi 14, dementia complicating his ability to take care of himself at home. he is no longer appropriate to be at home. PTOT. Dietary eval. SNF placement. Remeron for appetite. 2. Lung nodule - 1.[address] shows 4.3x3.5.2.5 cm pleural based cavity with marked bronchial thickening. I personally reviewed the imagingand discussed the findings with the patient's daughter-there is no plan for aggressive work-up given that they would not pursue treatment if there were something such as cancer. I advised him that they have the option of following up in the pulmonary medicine clinic as an outpatient in 2 weeks. 3. Suspected COPD, no formal dx -continue duo nebs. No hypoxia. Wheezing resolved. No shortness of breath. 4. CAD hx CABG - aspirin, plavix, losartan, metoprolol. 5. HTN - well controlled at this time. 6. HLD - statin 7. Dementia - not on medications for this. 8. Nicotine abuse - patch if desired. 9. Former alcoholic - sober about 1 year. DVT ppx: lovenox DC planning: SNF - pts daughter works at [employer] and would like placement there if possible. This patient was seen by Rafal Machado PA-C under the supervision of Dr. Timmons <Cassia Timmons - Last Filed: 08/14/19 15:57> Vitals/I&O's: Vital Signs Temp Pulse Resp BP Pulse Ox 98.3 F 76 18 113/64 98 08/14/19 08:52 08/14/19 08:52 08/14/19 08:52 08/14/19 08:52 08/14/19 08:52 Oxygen Flow Rate (L/min) 2 Oxygen Delivery Method Room Air Weight: 83 lb 5.356 oz Body Mass Index (BMI) 14.7 Intake and Output for Last 24 Hours 08/12/19 08/13/19 08/14/19 22:59 23:59 23:59 Intake Total 345 / 345 Output Total Balance 345 / 345 Current Medications Albuterol/Ipratropium (Duoneb) 3 ml INHALATION Q4HWA.RT [facility] Last Admin: 08/14/19 14:44 Dose: Not Given Documented by: Amlodipine Besylate (Norvasc) 2.5 mg PO DAILY [facility] Last Admin: 08/14/19 08:42 Dose: 2.5 mg Documented by: Aspirin (Ecotrin) 81 mg PO DAILY@0800 [facility] Last Admin: 08/14/19 08:42 Dose: 81 mg Documented by: Atorvastatin Calcium (Lipitor) 20 mg PO DAILY [facility] Last Admin: 08/14/19 08:42 Dose: 20 mg Documented by: Clopidogrel Bisulfate (Plavix) 75 mg PO DAILY [facility] Last Admin: 08/14/19 08:41 Dose: 75 mg Documented by: Heparin Sodium (Porcine) (Heparin Na) 5,000 unit SC Q12 [facility] Last Admin: 08/14/19 08:42 Dose: 5,000 unit Documented by: Sodium Chloride () 250 mls @ 15 mls/hr IV .[id number] PRN PRN Reason: Saline Flush Losartan Potassium (Cozaar) 100 mg PO DAILY [facility] Last Admin: 08/14/19 08:42 Dose: 100 mg Documented by: Melatonin (Melatonin) 3 mg PO QHS [facility] Last Admin: 08/13/19 20:46 Dose: 3 mg Documented by: Metoprolol Tartrate (Lopressor (Beta Shayla)) 50 mg PO BID [facility] Last Admin: 08/14/19 08:42 Dose: 50 mg Documented by: Mirtazapine (Remeron) 30 mg PO QHS [facility] Last Admin: 08/13/19 20:46 Dose: 30 mg Documented by: Nicotine (Nicoderm Cq (Pbkc)) 7 mg TRANSDERM. DAILY [facility] Last Admin: 08/14/19 08:41 Dose: 7 mg Documented by: Nutritional Formula (Lactose Free) (Ensure Enlive) 120 ml PO 4X/DAY [facility] Last Admin: 08/14/19 08:42 Dose: 120 ml Documented by: Sodium Chloride () 10 - 40 ml IV UD PRN PRN Reason: SALINE FLUSH Assessment/Plan Patient seen by Rafal Machado PA-C under my supervision Patient seen and examined. He had no complaints today he was comfortably eating breakfast. Patient did have a lung nodule of about 1.2 cm in diameter per CT scan finding. I discussed with patient about if he would want work-up done but patient said if it was cancer he would not want any further work-up done. This was also discussed with his daughter by the physician academic affairs assistant Rafal Machado and daughter stated that they would not want any extensive work-up done as patient would not want treatment of his cancer. Patient is amenable to following up with pulmonology on outpatient basis. Review of stems otherwise negative. Labs and vitals reviewed. o/e: Vital Signs Height 5 ft 3 in Weight: 83 lb 5.356 oz Weight in Pounds 83.3 lbs Pulse Ox 98 Temperature 98.3 F Pulse Rate 76 Respiratory Rate 18 Blood Pressure 113/64 Blood Pressure Position Semi-Fowlers General: Alert, Oriented x3, Cooperative, very cachectic HEENT: Atraumatic, PERRLA, EOMI, Normocephalic Neck: Supple, No JVD, Negative Carotid Bruits Lungs: Clear to auscultation, Diminished Cardiovascular: Regular rate, No murmurs Abdomen: Bowel Sounds Present, Soft, Non Tender Extremities: No edema, Capillary Refill Less than 3 Seconds Skin: No rashes, No breakdown; overgrown and unkempt fingernails Musculoskeletal: No Tenderness to Palpation of Joints or Extremities Neurological: Cranial nerves II-XII grossly intact Psych/Mental Status: Normal Affect, Appropriate Plan is for patient to be referred to pulmonology and up patient basis for evaluation of lung nodule. Will consult podiatry on account of overgrown and unkempt finger and toenails. Patient is awaiting placement. Rest as per Rafal Machado PA-C's notes which I have reviewed and endorsed. Inpatient E&M: 04828 Subs Hosp L2
--- NOTE | 2019-08-14 13:39 | CASEMGMT ---
Social Work Note PA updated this worker that per pt's daughter, she works at [employer] [facility] [place] and would like referral sent to [employer] [facility] [place]. [place] placed a call to [employer] [facility] [place] and spoke with Mary in admissions, provided referral. [place] faxed referral [phone]. Plan: [employer] [facility] [place] pending acceptance and pre-cert [employer], [employer]
--- NOTE | 2019-08-14 14:31 | CON.PCM_ITS ---
Reason for Consult Date of Consultation: 08/14/19 Reason for Consultation: Long painful toenails History of Present Illness: The patient is a 69 year old male was seen today for toenails. Patient has long, thickened, ingrown toenails which need to be reduced. He has no other pedal com plaints. Podiatry was consulted by medicine team. Past Medical History Past Medical History (Chronic Problems): Chronic Problems Malnutrition (Chronic) Lung nodule (Chronic) HTN (hypertension) (Chronic) Dementia (Chronic) CAD (coronary artery disease) (Chronic) HLD (hyperlipidemia) (Chronic) Asbestosis (Chronic) Allergies No Known Allergies Allergy (Verified 08/11/19 11:17) Home Medications: Ambulatory Orders Medication Instructions Recorded Amlodipine [Norvasc] 2.5 mg PO DAILY 08/11/19 Aspirin E.C. [Ecotrin] 81 mg PO DAILY@0800 08/11/19 Atorvastatin Calcium [Lipitor] 20 mg PO DAILY 08/11/19 Clopidogrel Bisulfate [Clopidogrel] 75 mg PO DAILY 08/11/19 Cyanocobalamin (Vitamin B-12) 1,000 mcg PO DAILY 08/11/19 [B-12] Fenofibrate Nanocrystallized 160 mg PO DAILY 08/11/19 [Fenofibrate] Losartan Potassium 100 mg PO DAILY 08/11/19 Metoprolol(XL)Succ [Toprol Xl 150 mg PO DAILY 08/11/19 (Beta Shayla)] traZODone [Desyrel] 200 mg PO QHS 08/11/19 Surgical History: cataract, coronary bypass surgery Psychiatric History: No pertinent psych hx Lives: Alone Smoking Status: Current every day smoker Tobacco Use: Cigarettes Alcohol: Sober Drugs: None Review of Systems Constitutional: Denies: Chills, Fever Gastrointestinal: Denies: Nausea, Vomiting Patient Problems: Active and Suspected Problems Weakness (Acute) Debility (Acute) - Physical Exam Vitals/I&O's: Vital Signs Temp Pulse Resp BP Pulse Ox 98.3 F 76 18 113/64 98 08/14/19 08:52 08/14/19 08:52 08/14/19 08:52 08/14/19 08:52 08/14/19 08:52 Oxygen Flow Rate (L/min) 2 Oxygen Delivery Method Room Air Weight: 37.8 kg Body Mass Index (BMI) 14.7 Intake and Output for Last 24 Hours 08/12/19 08/13/19 08/14/19 22:59 23:59 23:59 Intake Total 345 / 345 Output Total Balance 345 / 345 General: Alert, Oriented x3, Cooperative, No apparent distress Extremities: No cyanosis, No edema, Capillary Refill Less than 3 Seconds, No Calf Tenderness - Skin thin and atrophic, muscle atrophy bilateral foot/ankle. No open lesions, no erythema, no edema, no ecchymosis, no necrosis, no drainage bilateral foot/ankle. Toenails 1-5 bilateral are elongated, thickened, dystrophic, incurvated with subungual debris. Sensation intact to the foot/ankle with light touch bilateral. Motor function intact to foot/ankle bilateral. No m/s POP or pain on ROM to the foot/ankle bilateral., Peripheral Pulses Normal, - Current Medications Albuterol/Ipratropium (Duoneb) 3 ml INHALATION Q4HWA.RT [facility] Last Admin: 08/14/19 11:28 Dose: Not Given Documented by: Amlodipine Besylate (Norvasc) 2.5 mg PO DAILY [facility] Last Admin: 08/14/19 08:42 Dose: 2.5 mg Documented by: Aspirin (Ecotrin) 81 mg PO DAILY@0800 [facility] Last Admin: 08/14/19 08:42 Dose: 81 mg Documented by: Atorvastatin Calcium (Lipitor) 20 mg PO DAILY [facility] Last Admin: 08/14/19 08:42 Dose: 20 mg Documented by: Clopidogrel Bisulfate (Plavix) 75 mg PO DAILY [facility] Last Admin: 08/14/19 08:41 Dose: 75 mg Documented by: Heparin Sodium (Porcine) (Heparin Na) 5,000 unit SC Q12 [facility] Last Admin: 08/14/19 08:42 Dose: 5,000 unit Documented by: Sodium Chloride () 250 mls @ 15 mls/hr IV .[id number] PRN PRN Reason: Saline Flush Losartan Potassium (Cozaar) 100 mg PO DAILY [facility] Last Admin: 08/14/19 08:42 Dose: 100 mg Documented by: Melatonin (Melatonin) 3 mg PO QHS [facility] Last Admin: 08/13/19 20:46 Dose: 3 mg Documented by: Metoprolol Tartrate (Lopressor (Beta Shayla)) 50 mg PO BID [facility] Last Admin: 08/14/19 08:42 Dose: 50 mg Documented by: Mirtazapine (Remeron) 30 mg PO QHS [facility] Last Admin: 08/13/19 20:46 Dose: 30 mg Documented by: Nicotine (Nicoderm Cq (Pbkc)) 7 mg TRANSDERM. DAILY [facility] Last Admin: 08/14/19 08:41 Dose: 7 mg Documented by: Nutritional Formula (Lactose Free) (Ensure Enlive) 120 ml PO 4X/DAY [facility] Last Admin: 08/14/19 08:42 Dose: 120 ml Documented by: Sodium Chloride () 10 - 40 ml IV UD PRN PRN Reason: SALINE FLUSH Assessment/Plan All Active Problems Weakness (Acute) Debility (Acute) Dystrophic toenails 1-5 bilateral Ingrown toenails 1-5 bilateral Debrided toenails 1-5 bilateral using a nail nipper. This was done without incident. Reviewed importance of proper nail/foot care with patient. Patient can follow up with us as outpatient for future foot care. Podiatry will sign off, please reconsult if needed. Thank you for consult.
--- NOTE | 2019-08-14 15:53 | CHAPLAIN ---
Type of Pastoral Visit _x__ Initial Visit ___ Follow-up Visit ___ On-call Visit ___ General Patient Visit ___ Spiritual Assessment ___ Family Conference ___ Bereavement ___ Rapid Response ___ Code Blue ___ Other (describe below) Pastoral Care Referral From _x__ Patient ___ Family ___ Nurse ___ Physician ___ Ring Attacher ___ Finished Goods Stock Clerk ___ Other (describe below) Sacrament/Intervention _x__ Active listening ___ Anointing ___ Zoroastrian ___ Bereavement ___ Communion ___ Jennyfer exploration ___ _x__ Life review _x__ Prayer ___ Reconciliation ___ Sacrament of Sick _x__ Supportive presence ___ Wedding ___ Other (describe below) Pastoral Comments
[2019-08-14] MEDS: MELATONIN 3 MG TABLET PO (21:28)
[2019-08-14] MEDS: Mirtazapine 30 MG Tablet PO (21:28)
[2019-08-15] VITALS (7 sets, daily range): BP systolic 111–153; BP diastolic 58–86; PULSE 63–108; RESP 18–22; TEMP 36.4–36.8; O2SAT 96–100
[2019-08-15] MEDS: Ipratropium/Albuterol Sulfate 3 ML AMPUL.NEB INHALATION (06:41)
[2019-08-15] MEDS: Aspirin E.C. 81 MG Tablet PO (08:37)
--- NOTE | 2019-08-15 09:14 | CASEMGMT ---
Addendum entered by Lubna Sousa 08/15/19 11:01: Pt's daughter Kaylah present at [facility]. SW updated Kaylah on acceptance to [facility] in [place] pending pre-cert. Addendum entered by Lubna Sousa 08/15/19 10:01: SW met with pt and introduced self and role at [facility]. Pt is alert and orientated. Pt confirms pt's daughter works at [facility] in [place] and is agreeable to going there at discharge. SW informed pt that pt has been accepted pending pre-cert. Pt states understanding. Original Note: Social Work Note [place] placed a call to [facility] in [place] and spoke with Mary in admissions. Mary states they are able to accept pt and submitted for pre-cert yesterday. [place] attempted to call pt's daughter Kaylah but no answer and SW left message for Kaylah to give this worker a call back. Plan: [facility] in [place] pending pre-cert Lubna Sousa [employer]AN[employer] ATTENDANT, AREA COORDINATOR
[2019-08-15] MEDS: Heparin Injection (Vial) 5,000 UNIT/ML VIAL 5000 UNIT SC (09:15)
[2019-08-15] MEDS: Losartan Potassium 100 MG Tablet PO (09:16)
[2019-08-15] MEDS: Atorvastatin Calcium 20 MG Tablet PO (09:17)
[2019-08-15] MEDS: Clopidogrel Bisulfate 75 MG Tablet PO (09:18)
[2019-08-15] MEDS: amLODIPine 2.5 MG Tablet PO (09:19)
[2019-08-15] MEDS: Metoprolol Tartrate 50 MG Tablet PO (09:20)
--- NOTE | 2019-08-15 12:24 | PCM.PN.HOSP ---
<Rafal Machado - Last Filed: 08/15/19 12:24> Patient Problems: Active and Suspected Problems Weakness (Acute) Debility (Acute) Reason for Visit: debility Subjective: Patient continues to tolerate diet, no nausea, vomiting, diarrhea. Patient has no fevers or chills. He has no wheezing today, no cough, no shortness of breath. He has no complaints and is waiting for mcc placement. Vitals/I&O's: Vital Signs Temp Pulse Resp BP Pulse Ox 98.3 F 101 H 18 133/75 H 99 08/15/19 10:00 08/15/19 10:00 08/15/19 10:00 08/15/19 10:00 08/15/19 10:00 Oxygen Flow Rate (L/min) 2 Oxygen Delivery Method Nasal Cannula Weight: 83 lb 5.356 oz Body Mass Index (BMI) 14.7 Intake and Output for Last 24 Hours 08/13/19 08/14/19 08/15/19 23:59 23:59 23:59 Intake Total 1125 / 1275 200 / 200 Output Total Balance 1125 / 1275 200 / 200 General: Alert, Oriented x3, Cooperative, - - Cachectic HEENT: Atraumatic, PERRLA, EOMI, Normocephalic Neck: Supple, No JVD, Negative Carotid Bruits Lungs: Clear to auscultation, Diminished Cardiovascular: Regular rate, No murmurs Abdomen: Bowel Sounds Present, Soft, Non Tender Extremities: No edema, Capillary Refill Less than 3 Seconds Skin: No rashes, No breakdown Musculoskeletal: No Tenderness to Palpation of Joints or Extremities Neurological: Cranial nerves II-XII grossly intact Psych/Mental Status: Normal Affect, Appropriate Current Medications Albuterol/Ipratropium (Duoneb) 3 ml INHALATION Q4HWA.RT [facility] Last Admin: 08/15/19 06:41 Dose: 3 ml Documented by: Amlodipine Besylate (Norvasc) 2.5 mg PO DAILY [facility] Last Admin: 08/15/19 09:19 Dose: 2.5 mg Documented by: Aspirin (Ecotrin) 81 mg PO DAILY@0800 [facility] Last Admin: 08/15/19 08:37 Dose: 81 mg Documented by: Atorvastatin Calcium (Lipitor) 20 mg PO DAILY [facility] Last Admin: 08/15/19 09:17 Dose: 20 mg Documented by: Clopidogrel Bisulfate (Plavix) 75 mg PO DAILY [facility] Last Admin: 08/15/19 09:18 Dose: 75 mg Documented by: Heparin Sodium (Porcine) (Heparin Na) 5,000 unit SC Q12 [facility] Last Admin: 08/15/19 09:15 Dose: 5,000 unit Documented by: Sodium Chloride () 250 mls @ 15 mls/hr IV .[id number] PRN PRN Reason: Saline Flush Losartan Potassium (Cozaar) 100 mg PO DAILY [facility] Last Admin: 08/15/19 09:16 Dose: 100 mg Documented by: Melatonin (Melatonin) 3 mg PO QHS [facility] Last Admin: 08/14/19 21:28 Dose: 3 mg Documented by: Metoprolol Tartrate (Lopressor (Beta Shayla)) 50 mg PO BID [facility] Last Admin: 08/15/19 09:20 Dose: 50 mg Documented by: Mirtazapine (Remeron) 30 mg PO QHS [facility] Last Admin: 08/14/19 21:28 Dose: 30 mg Documented by: Nicotine (Nicoderm Cq (Pbkc)) 7 mg TRANSDERM. DAILY [facility] Last Admin: 08/15/19 09:16 Dose: 7 mg Documented by: Nutritional Formula (Lactose Free) (Ensure Enlive) 120 ml PO 4X/DAY [facility] Last Admin: 08/15/19 09:15 Dose: Not Given Documented by: Sodium Chloride () 10 - 40 ml IV UD PRN PRN Reason: SALINE FLUSH STROKE Vital Signs/Narrative: Vital Signs Temp Pulse Resp BP Pulse Ox 08/15/19 10:00 98.3 F 101 H 18 133/75 H 99 08/15/19 09:20 108 H 153/86 H 08/15/19 08:35 98.3 F 101 H 18 133/75 H 100 Medical Necessity - Tobacco Use Smoking Status: Current every day smoker Tobacco Use: Cigarettes Assessment/Plan All Active Problems Weakness (Acute) Debility (Acute) 1. Generalized debility - severely malnourished, bmi 14, dementia complicating his ability to take care of himself at home. he is no longer appropriate to be at home. PTOT. Dietary eval. SNF placement. Remeron for appetite. 2. Lung nodule - 1.[address] hx [address] shows 4.3x3.5.2.5 cm pleural based cavity with marked bronchial thickening. As noted yesterday, I personally reviewed the imaging and discussed the findings with the patient's daughter-there is no plan for aggressive work-up given that they would not pursue treatment if there were something such as cancer. I advised him that they have the option of following up in the pulmonary medicine clinic as an outpatient in 2 weeks. 3. Suspected COPD, no formal dx -continue duo nebs. No hypoxia. Wheezing resolved. No shortness of breath. O2 as needed to maintain sats at least 89%. 4. CAD hx CABG - aspirin, plavix, losartan, metoprolol. 5. HTN - well controlled at this time. 6. HLD - statin 7. Dementia - not on medications for this. 8. Nicotine abuse - patch if desired. 9. Former alcoholic - sober about 1 year. DVT ppx: lovenox [place] planning: SNF - [facility] [place]. This patient was seen by Rafal Machado PA-C under the supervision of Dr. Timmons <Cassia Timmons - Last Filed: 08/15/19 15:03> Vitals/I&O's: Vital Signs Temp Pulse Resp BP Pulse Ox 98.3 F 101 H 18 133/75 H 99 08/15/19 10:00 08/15/19 10:00 08/15/19 10:00 08/15/19 10:00 08/15/19 10:00 Oxygen Flow Rate (L/min) 2 Oxygen Delivery Method Nasal Cannula Weight: 83 lb 5.356 oz Body Mass Index (BMI) 14.7 Intake and Output for Last 24 Hours 08/13/19 08/14/19 08/15/19 23:59 23:59 23:59 Intake Total 1125 / 1275 200 / 200 Output Total Balance 1125 / 1275 200 / 200 Current Medications Albuterol/Ipratropium (Duoneb) 3 ml INHALATION Q4HWA.RT [facility] Last Admin: 08/15/19 10:50 Dose: Not Given Documented by: Amlodipine Besylate (Norvasc) 2.5 mg PO DAILY [facility] Last Admin: 08/15/19 09:19 Dose: 2.5 mg Documented by: Aspirin (Ecotrin) 81 mg PO DAILY@0800 [facility] Last Admin: 08/15/19 08:37 Dose: 81 mg Documented by: Atorvastatin Calcium (Lipitor) 20 mg PO DAILY [facility] Last Admin: 08/15/19 09:17 Dose: 20 mg Documented by: Clopidogrel Bisulfate (Plavix) 75 mg PO DAILY [facility] Last Admin: 08/15/19 09:18 Dose: 75 mg Documented by: Heparin Sodium (Porcine) (Heparin Na) 5,000 unit SC Q12 [facility] Last Admin: 08/15/19 09:15 Dose: 5,000 unit Documented by: Sodium Chloride () 250 mls @ 15 mls/hr IV .[id number] PRN PRN Reason: Saline Flush Losartan Potassium (Cozaar) 100 mg PO DAILY [facility] Last Admin: 08/15/19 09:16 Dose: 100 mg Documented by: Melatonin (Melatonin) 3 mg PO QHS [facility] Last Admin: 08/14/19 21:28 Dose: 3 mg Documented by: Metoprolol Tartrate (Lopressor (Beta Shayla)) 50 mg PO BID [facility] Last Admin: 08/15/19 09:20 Dose: 50 mg Documented by: Mirtazapine (Remeron) 30 mg PO QHS [facility] Last Admin: 08/14/19 21:28 Dose: 30 mg Documented by: Nicotine (Nicoderm Cq (Pbkc)) 7 mg TRANSDERM. DAILY [facility] Last Admin: 08/15/19 09:16 Dose: 7 mg Documented by: Nutritional Formula (Lactose Free) (Ensure Enlive) 120 ml PO 4X/DAY [facility] Last Admin: 08/15/19 14:19 Dose: Not Given Documented by: Sodium Chloride () 10 - 40 ml IV UD PRN PRN Reason: SALINE FLUSH Assessment/Plan Patient seen by Rafal Machado PA-C under my supervision. Seen and examined. He has no complaints today. Pre-CERT has been obtained and he is to be discharged to care home today. Labs and vitals reviewed. o/e: Vital Signs Height 5 ft 3 in Weight: 83 lb 5.356 oz Weight in Pounds 83.3 lbs Pulse Ox 99 Temperature 98.3 F Pulse Rate 101 Respiratory Rate 18 Blood Pressure 133/75 Blood Pressure Position Semi-Fowlers General: Alert, Oriented x3, Cooperative, very cachectic HEENT: Atraumatic, PERRLA, EOMI, Normocephalic Neck: Supple, No JVD, Negative Carotid Bruits Lungs: Clear to auscultation, Diminished Cardiovascular: Regular rate, No murmurs Abdomen: Bowel Sounds Present, Soft, Non Tender Extremities: No edema, Capillary Refill Less than 3 Seconds Skin: No rashes, No breakdown; overgrown and unkempt fingernails Musculoskeletal: No Tenderness to Palpation of Joints or Extremities Neurological: Cranial nerves II-XII grossly intact Psych/Mental Status: Normal Affect, Appropriate Plan is for patient to be discharged to care home today. Of note, podiatry was consulted yesterday for clipping of patient's fingernails and toenails. To follow-up with pulmonology on outpatient basis. Also to follow-up with primary care doctor. Rest as per Rafal Machado PA-C's notes which I have reviewed and endorsed. Inpatient E&M: [id number] Subs Hosp L2
--- NOTE | 2019-08-15 13:39 | PCM.EXTCARCO ---
- Diet 08/11/19 15:51 Diet: Regular Diet Food consistency:: Regular Liquid Consistency:: Regular/Thin - Routine Orders/Code Status Suppository Type: Dulcolax 10mg Suppository Frequency: Daily PRN O2 Frequency: Continuous Keep PO Greater than or Equal to (%): 89 Routine Lab Work: CBC - 1 week, BMP - 1 week Code Status: DNRCC-A - Wound(s) LFA Wound Type: Abrasion RIGHT STERLING Wound Type: Abrasion - Therapies Physical Therapy: Eval and Treat Occupational Therapy: Eval and Treat - Problem/Diagnosis (1) Debility Status: Acute Current Visit: Yes (2) Lung nodule Status: Chronic Current Visit: Yes (3) HTN (hypertension) Status: Chronic Current Visit: Yes (4) Dementia Status: Chronic Current Visit: Yes (5) CAD (coronary artery disease) Status: Chronic Current Visit: Yes (6) HLD (hyperlipidemia) Status: Chronic Current Visit: Yes (7) Asbestosis Status: Chronic Current Visit: Yes (8) Malnutrition Status: Chronic Current Visit: Yes - Allergies/Procedures Done in Hospital Allergies/Adverse Reactions: Allergies No Known Allergies Allergy (Verified 08/11/19 11:17) Procedures: None - Type of Care/Length of Stay Estimated LOS: Convalescent Care Less Than 30 days Type of Care Needed: Skilled Rehab Potential: Fair Prognosis: Fair - Additional Orders/Day of Discharge Day of Discharge: 08/15/19 - Dietary and Speech Recommendations Dietitian Recommendations/Changes: Rec continue Regular diet w/ ONS at meals and medpass. Rec continue appetite stimulant. Rec supplemental nutrition support if po intake fails to help prevent further decline in pt nutritional status. Please monitor for s/s of refeeding syndrome. Please monitor wts daily - Follow Up Care Primary Care Physician: Michi Harrington MD [Primary Care Provider] - Please follow up with your Primary Care Physician in: 1-2 weeks Please Follow Up With: Chano Munguia DO - regarding lung nodule When: 2 weeks
--- NOTE | 2019-08-15 13:42 | DS.PCM_ITS ---
<Rafal Machado - Last Filed: 08/15/19 13:42> Discharge Date and Diagnosis - Problem List Patient Problems: Active and Suspected Problems Weakness (Acute) Debility (Acute) Date of Admission: 08/11/19 Date of Discharge: 08/15/19 - Primary Discharge Diagnosis Active and Suspected Problems Debility Severe protein calorie malnutrition Dementia Lung nodule hx asbesosis, nicotine abuse HTN HLD Suspected COPD Former alcoholic - Secondary Discharge Diagnosis Chronic Problems Malnutrition (Chronic) Lung nodule (Chronic) HTN (hypertension) (Chronic) Dementia (Chronic) CAD (coronary artery disease) (Chronic) HLD (hyperlipidemia) (Chronic) Asbestosis (Chronic) Hospital Course and Treatment Imaging Results: RAD/Chest PA and Lateral IMPRESSION: Progressive increased interstitial markings in both lungs with blunting of both gastric angles as well as calcified right pleural plaques. I suspect a 1.2 cm nodule in the lateral aspect of the right middle lobe. CT/Chest WITH Contrast IMPRESSION: Extensive primarily subpleural bullous and chronic cystic changes throughout and marked diffuse interstitial opacities of a chronic nature with generalized pleural thickening and calcified pleural plaque. Calcified pleural plaque are more extensive on the right side. The general appearance and pattern appears similar in extent and degree to a prior chest radiograph of September 12, 2013. However, there is a irregular thick walled pleural based cavity in the axillary portion of the right upper lobe measuring 4.3 x 3.5 x 2.5 cm associated with adjacent marked bronchial thickening which now appears to be a new finding from the exam of 2013. Inflammatory versus neoplastic process. Mediastinal and subcarinal adenopathy. Shotty hilar lymph nodes. Negative for pleural effusion. Normal cardiac size. Status post prior midline sternotomy. Status post mitral valve replacement. Cardiac calcifications and stents. Atherosclerotic changes of the aorta without aneurysm or dissection. Negative for pulmonary embolus. Operations: None Procedures: None Summary of Care Provided: Hospital course: The patient is a 69 year old M with past medical history of dementia, alcoholism sober for about a year, nicotine abuse, asbestosis, suspected COPD, malnutrition, hypertension, hyperlipidemia who presented to the emergency room from home. He was found by his daughter living in squalor not taking care of himself, not eating or drinking enough. He was very malnourished and cachectic in the emergency room. He was not able to take care of himself at home, and his daughter and he agreed that he should go to a residential. He was admitted to the hospital general medical floor. Had a chest x-ray that showed a lung nodule. A follow-up CT of the chest was performed which demonstrated a 4.3 x 3.5 x 2.5 cm pleural-based thick-walled irregular cavity with surrounding spiculation and confluent with a dense base tissue extending to include the right upper lobe bronchus and segmental bronchi. I discussed the findings with the patient's daughter's he has dementia. She discussed it with her father and decided that they would not want aggressive work-up or treatment given his dem entia and poor physical condition. They were given the option to follow-up with pulmonology in the office in 2 weeks. He will need follow-up with PCP in 1 to 2 weeks as well. He was started on Remeron here for appetite stimulation. He was placed on aerosols with suspected COPD as he did have some wheezing however no shortness of breath. His wheezing resolved with aerosol therapy and he should continue this at discharge. He can use oxygen as needed at discharge. He will be discharged to custodial in stable condition. He should continue dietary supplements as he has severe protein calorie malnutrition. He was discharged to custodial in stable condition. This patient was seen by Rafal Machado PA-C under the supervision of Doctor Iain. [] Patient Problems: Active and Suspected Problems Weakness (Acute) Debility (Acute) - Physical Exam Vitals/I&O's: Vital Signs Temp Pulse Resp BP Pulse Ox 98.3 F 101 H 18 133/75 H 99 08/15/19 10:00 08/15/19 10:00 08/15/19 10:00 08/15/19 10:08/15/19 10:00 Oxygen Flow Rate (L/min) 2 Oxygen Delivery Method Nasal Cannula Weight: 83 lb 5.356 oz Body Mass Index (BMI) 14.7 Intake and Output for Last 24 Hours 08/13/19 08/14/19 08/15/19 23:59 23:59 23:59 Intake Total 1125 / 1275 200 / 200 Output Total Balance 1125 / 1275 200 / 200 General: Alert, Confused - Pleasantly confused, - - Cachectic HEENT: Atraumatic, PERRLA, EOMI, Normocephalic Neck: Supple, No JVD, Negative Carotid Bruits Lungs: Clear to auscultation, Normal air movement Cardiovascular: Regular rate, No murmurs Abdomen: Bowel Sounds Present, Soft, Non Tender Extremities: No edema, Capillary Refill Less than 3 Seconds Skin: No rashes, No breakdown Musculoskeletal: No Tenderness to Palpation of Joints or Extremities Neurological: Cranial nerves II-XII grossly intact Psych/Mental Status: Normal Affect, Appropriate Current Medications Albuterol/Ipratropium (Duoneb) 3 ml INHALATION Q4HWA.RT [facility] Last Admin: 08/15/19 06:41 Dose: 3 ml Documented by: Amlodipine Besylate (Norvasc) 2.5 mg PO DAILY [facility] Last Admin: 08/15/19 09:19 Dose: 2.5 mg Documented by: Aspirin (Ecotrin) 81 mg PO DAILY@0800 [facility] Last Admin: 08/15/19 08:37 Dose: 81 mg Documented by: Atorvastatin Calcium (Lipitor) 20 mg PO DAILY [facility] Last Admin: 08/15/19 09:17 Dose: 20 mg Documented by: Clopidogrel Bisulfate (Plavix) 75 mg PO DAILY [facility] Last Admin: 08/15/19 09:18 Dose: 75 mg Documented by: Heparin Sodium (Porcine) (Heparin Na) 5,000 unit SC Q12 [facility] Last Admin: 08/15/19 09:15 Dose: 5,000 unit Documented by: Sodium Chloride () 250 mls @ 15 mls/hr IV .[id number] PRN PRN Reason: Saline Flush Losartan Potassium (Cozaar) 100 mg PO DAILY [facility] Last Admin: 08/15/19 09:16 Dose: 100 mg Documented by: Melatonin (Melatonin) 3 mg PO QHS [facility] Last Admin: 08/14/19 21:28 Dose: 3 mg Documented by: Metoprolol Tartrate (Lopressor (Beta Shayla)) 50 mg PO BID [facility] Last Admin: 08/15/19 09:20 Dose: 50 mg Documented by: Mirtazapine (Remeron) 30 mg PO QHS [facility] Last Admin: 08/14/19 21:28 Dose: 30 mg Documented by: Nicotine (Nicoderm Cq (Pbkc)) 7 mg TRANSDERM. DAILY [facility] Last Admin: 08/15/19 09:16 Dose: 7 mg Documented by: Nutritional Formula (Lactose Free) (Ensure Enlive) 120 ml PO 4X/DAY [facility] Last Admin: 08/15/19 09:15 Dose: Not Given Documented by: Sodium Chloride () 10 - 40 ml IV UD PRN PRN Reason: SALINE FLUSH Discharge Diet: No Restrictions, - - Continue daily supplements Discharge Activity: Return to Normal Activity Home Medications: Medications to take at Discharge Amlodipine [Norvasc] 2.5 mg PO DAILY 08/11/19 Aspirin E.C. [Ecotrin] 81 mg PO DAILY@0800 08/11/19 Atorvastatin Calcium [Lipitor] 20 mg PO DAILY 08/11/19 Clopidogrel Bisulfate [Clopidogrel] 75 mg PO DAILY 08/11/19 Losartan Potassium 100 mg PO DAILY 08/11/19 Ensure Enlive 120 ml PO 4X/DAY liquid 08/15/19 Ipratropium/Albuterol Sulfate [Duoneb] 3 ml INHALATION Q4HWA.RT ampul.neb 08/15/19 Melatonin 3 mg PO QHS tab 08/15/19 Metoprolol Tartrate [Lopressor (beta shayla)] 50 mg PO BID tab 08/15/19 Mirtazapine [Remeron] 30 mg PO QHS tab 08/15/19 Nicotine [Nicoderm Cq] 7 mg TRANSDERM. DAILY patch 08/15/19 Primary Care Physician: Michi Harrington MD [Primary Care Provider] - Please follow up with your Primary Care Physician in: 1-2 weeks Please Follow Up With: Chano Munguia DO - regarding lung nodule When: 2 weeks Disposition: Nursing Home facility Minutes spent on discharge:: 35 Patient Condition:: Stable Medical Necessity - Tobacco Use Smoking Status: Current every day smoker Tobacco Use: Cigarettes Meaningful Use Info Meaningful Use Diagnoses (Choose all that apply): None applicable <Cassia Timmons - Last Filed: 08/15/19 15:00> Discharge Date and Diagnosis - Primary Discharge Diagnosis Active and Suspected Problems Weakness (Acute) Debility (Acute) - Secondary Discharge Diagnosis Chronic Problems Malnutrition (Chronic) Lung nodule (Chronic) HTN (hypertension) (Chronic) Dementia (Chronic) CAD (coronary artery disease) (Chronic) HLD (hyperlipidemia) (Chronic) Asbestosis (Chronic) Hospital Course and Treatment Summary of Care Provided: Patient seen by Rafal Machado PA-C under my supervision The patient is a 69 year old M with a PMH as outlined. He was admitted with due to failure to thrive and inability to care for himself. He was found very malnourished, cachectic and unable to care for himself by his daughter. He was therefore admitted to manage for failure to thrive and debility and to be placed in a residential. He had a chest x-ray which showed a lung nodule. A follow- up CT scan confirmed a 4.3 x 3.5 x 2.5 cm pleural based irregular cavity with surrounding spiculation. Patient and family declined further work-up as he said patient would not want treatment of it was malignant and patient agreed to this. He was however amenable to outpatient follow-up. Patient was also started on Remeron for appetite stimulation and started on bronchodilator treatment for suspected COPD due to chronic history of smoking and some wheezing. Patient was discharged to the custodial facility on 08/15/2019. He is follow-up with his primary care doctor and outpatient pulmonology. Patient seen and examined prior to discharge. He had no complaints. Was ready to be discharged and denied any shortness of breath, cough, wheezing, chest pain, abdominal pain, diarrhea vomiting. Review of signs otherwise negative. Labs and vitals reviewed. Home medication reviewed and reconciled. o/e: Vital Signs Height 5 ft 3 in Weight: 83 lb 5.356 oz Weight in Pounds 83.3 lbs Pulse Ox 99 Temperature 98.3 F Pulse Rate 101 Respiratory Rate 18 Blood Pressure 133/75 Blood Pressure Position Semi-Fowlers [] General: Alert, Oriented x3, Cooperative, very cachectic HEENT: Atraumatic, PERRLA, EOMI, Normocephalic Neck: Supple, No JVD, Negative Carotid Bruits Lungs: Clear to auscultation, Diminished Cardiovascular: Regular rate, No murmurs Abdomen: Bowel Sounds Present, Soft, Non Tender Extremities: No edema, Capillary Refill Less than 3 Seconds Skin: No rashes, No breakdown; overgrown and unkempt fingernails Musculoskeletal: No Tenderness to Palpation of Joints or Extremities Neurological: Cranial nerves II-XII grossly intact Psych/Mental Status: Normal Affect, Appropriate Plan is for discharge to residential today. Rest as per Rafal Machado PA-C's notes which I have reviewed and endorsed. - Physical Exam Vitals/I&O's: Vital Signs Temp Pulse Resp BP Pulse Ox 98.3 F 101 H 18 133/75 H 99 08/15/19 10:00 08/15/19 10:00 08/15/19 10:00 08/15/19 10:00 08/15/19 10:00 Oxygen Flow Rate (L/min) 2 Oxygen Delivery Method Nasal Cannula Weight: 83 lb 5.356 oz Body Mass Index (BMI) 14.7 Intake and Output for Last 24 Hours 08/13/19 08/14/19 08/15/19 23:59 23:59 23:59 Intake Total 1125 / 1275 200 / 200 Output Total Balance 1125 / 1275 200 / 200 Current Medications Albuterol/Ipratropium (Duoneb) 3 ml INHALATION Q4HWA.RT [facility] Last Admin: 08/15/19 10:50 Dose: Not Given Documented by: Amlodipine Besylate (Norvasc) 2.5 mg PO DAILY [facility] Last Admin: 08/15/19 09:19 Dose: 2.5 mg Documented by: Aspirin (Ecotrin) 81 mg PO DAILY@0800 [facility] Last Admin: 08/15/19 08:37 Dose: 81 mg Documented by: Atorvastatin Calcium (Lipitor) 20 mg PO DAILY [facility] Last Admin: 08/15/19 09:17 Dose: 20 mg Documented by: Clopidogrel Bisulfate (Plavix) 75 mg PO DAILY [facility] Last Admin: 08/15/19 09:18 Dose: 75 mg Documented by: Heparin Sodium (Porcine) (Heparin Na) 5,000 unit SC Q12 [facility] Last Admin: 08/15/19 09:15 Dose: 5,000 unit Documented by: Sodium Chloride () 250 mls @ 15 mls/hr IV .[id number] PRN PRN Reason: Saline Flush Losartan Potassium (Cozaar) 100 mg PO DAILY [facility] Last Admin: 08/15/19 09:16 Dose: 100 mg Documented by: Melatonin (Melatonin) 3 mg PO QHS [facility] Last Admin: 08/14/19 21:28 Dose: 3 mg Documented by: Metoprolol Tartrate (Lopressor (Beta Shayla)) 50 mg PO BID [facility] Last Admin: 08/15/19 09:20 Dose: 50 mg Documented by: Mirtazapine (Remeron) 30 mg PO QHS [facility] Last Admin: 08/14/19 21:28 Dose: 30 mg Documented by: Nicotine (Nicoderm Cq (Pbkc)) 7 mg TRANSDERM. DAILY [facility] Last Admin: 08/15/19 09:16 Dose: 7 mg Documented by: Nutritional Formula (Lactose Free) (Ensure Enlive) 120 ml PO 4X/DAY [facility] Last Admin: 08/15/19 14:19 Dose: Not Given Documented by: Sodium Chloride () 10 - 40 ml IV UD PRN PRN Reason: SALINE FLUSH Inpatient E&M: 91192 Disch Hosp
--- NOTE | 2019-08-15 14:45 | CASEMGMT ---
Social Work Note [place] received message from Mary at [facility] stating pre-cert has been obtained and pt is able to discharge today. [place] updated physician. [place] faxed complete discharge paperwork to [facility] including transfer to extended care facility, signed medication list and any scripts. Original in SNF folder and copy on pt's chart. [place] completed PAS/RR in HENS. Original in SNF folder and copy on pt's chart. RN updated this worker that pt will need to transport with [facility] and pt's family is aware insurance may not cover transport, pt may get a bill. [place] placed a call to [facility] and arranged transportation via cot for 3:45pm. Transportation form completed, placed on SNF folder and copy on pt's chart. [place] placed a call to Mary and updated her on transportation time. [place] placed a call to pt's daughter Kaylah and updated her on transportation time. RN and Pt updated. Plan: [facility] skilled today with [facility] transporting pt via cot at 3:45pm Lubna Sousa MSW, [employer]
== END 2019-08-15 15:55 | disposition skilled nursing facility (03) ==
LOC: ED 13:52 → MS3 15:48
PROVIDERS: Family Medicine; Admitting Provider Internal Medicine; Emergency Provider Emergency Medicine; PCP Family Medicine; Visit Provider Student in an Organized Health Care Education/Training Program
DX: R53.1 Weakness (principal); R06.02 Shortness of breath; I10 Essential (primary) hypertension; I51.9 Heart disease, unspecified; E43 Unspecified severe protein-calorie malnutrition; Z68.1 Body mass index [BMI] 19.9 or less, adult; R91.1 Solitary pulmonary nodule; I25.10 Atherosclerotic heart disease of native coronary artery without angina pectoris; F03.90 Unspecified dementia, unspecified severity, without behavioral disturbance, psychotic disturbance, mood disturbance, and anxiety; E78.5 Hyperlipidemia, unspecified; Z95.1 Presence of aortocoronary bypass graft; Z79.899 Other long term (current) drug therapy; Z79.02 Long term (current) use of antithrombotics/antiplatelets; Z79.82 Long term (current) use of aspirin; F17.210 Nicotine dependence, cigarettes, uncomplicated; F10.21 Alcohol dependence, in remission; L60.0 Ingrowing nail; Z87.09 Personal history of other diseases of the respiratory system
CPT/HCPCS: 36415; 71046; 71260; 80048; 80053; 81001; 83735; 84100; 84484; 85025; 85610; 93005; 94640; 96360; 96361; 96372; 97116; 97162; 97166; 97530; 97535; 97802; 99218; 99251; 99285; 99406; J7030; Q9967; A4216; G0378; G0463